=== PATIENT | male | born 1990 | race Caucasian/White ===

== ENCOUNTER 2016-12-30 17:29 | Emergency (ER) | payer SELFPAY ==
[2016-12-30 17:38] VITALS: BP 145/95
[2016-12-30] MEDS ORDERED: Ondansetron INJ* 2 MG/ML VIAL IV ONE (18:09)
--- NOTE | 2016-12-30 18:40 | UC ---
UC General HPI - HPI Summary HPI Summary: The patient comes in today for: 1. Tingling and shaking: Onset: 2-3 hours ago. Palliative/provocative: Nothing. Quality: Tingling. Region: He stated that he had tingling of the face, chest, arms and hands. With his hydration and Zofran, he states that there is only fainting tingling of the hands at this time, but it is improving. Severity: 0/10 pain. Time: Constant, but improving. Associated symptoms: Event: He started drinking at 7 PM last night and drank until 3 AM. He thinks that he had about 15 shots of [place]. Urination: It has been a long time since he started his partying. Vomiting: Started at 3-4 AM. He thinks that he vomited 100 to 150 (gagging) . Nausea is completely gone now. Diarrhea: None. He last urinated this AM and it was a dark yellow. * - History of Current Complaint Chief Complaint: UCGeneralIllness Stated Complaint: HANDS NUMB Time Seen by Provider: 12/30/16 17:57 Hx Obtained From: Patient - Allergy/Home Medications Allergies/Adverse Reactions: Allergies Allergy/AdvReac Type Severity Reaction Status Date / Time No Known Allergies Allergy Verified 12/30/16 17:38 Home Medications: Home Medications NK [No Home Medications Reported] 12/30/16 [History Confirmed 12/30/16] PMH/Surg Hx/FS Hx/Imm Hx Previously Healthy: Yes - No HTN, usually good BP Endocrine History Of: Denies: Diabetes, Thyroid Disease, Hyperthyroidism, Hypothyroidism, Dyslipidemia Cardiovascular History Of: Denies: Cardiac Disorders, Hypertension, Pacemaker/ICD, Myocardial Infarction , Congestive Heart Failure, Atrial Fibrillation, Deep Vein Thrombosis, Bleeding Disorders Respiratory History Of: Denies: COPD, Asthma, Bronchitis, Pneumonia, Pulmonary Embolism GI/ History Of: Denies: Gastroesophageal Reflux, Ulcer, Gastrointestinal Bleed, Gall Bladder Disease, Kidney Stones, Diverticulitis, Renal Disease, Urosepsis Neurological History Of: Denies: TIA, CVA, Dementia, Seizures, Migraine Psychological History Of: Denies: Anxiety, Depression, Bipolar Disorder, Schizophrenia, Post Traumatic Stress Disorder Cancer History Of: Denies: Lung Cancer, Colorectal Cancer, Breast Cancer, Prostate Cancer, Cervical Cancer Other History Of: Negative For: HIV, Hepatitis B, Hepatitis C, Anticoagulant Therapy - Surgical History Surgical History: None - Family History Known Family History: Negative: Cardiac Disease, Hypertension - Social History Occupation: Unemployed Alcohol Use: Occasionally Substance Use Type: None Smoking Status (MU): Former Smoker Length of Time of Smoking/Using Tobacco: 2 weeks Household Exposure Type: Cigarettes Review of Systems Constitutional: Negative Skin: Negative Eyes: Negative ENT: Negative Respiratory: Negative Cardiovascular: Negative Gastrointestinal: Negative Genitourinary: Negative All Other Systems Reviewed And Are Negative: Yes Physical Exam Triage Information Reviewed: Yes Appearance: Well-Appearing, No Pain Distress Vital Signs: Initial Vital Signs Temp 98.6 F 12/30/16 17:35 Pulse 84 12/30/16 17:35 Resp 20 12/30/16 17:35 BP 145/95 12/30/16 17:35 Pulse Ox 100 12/30/16 17:35 Vital Signs Reviewed: Yes Eyes: Positive: Conjunctiva Clear. Negative: Discharge ENT: Positive: Hearing grossly normal. Negative: Pharyngeal erythema, Nasal congestion, Nasal drainage, TM bulging, TM dull, TM red, Tonsillar swelling, Tonsillar exudate Dental: Negative: Gross Decay/Caries @, Dental Fracture @ Neck: Positive: Supple, Nontender, No Lymphadenopathy. Negative: Nuchal Rigidity Respiratory: Positive: Chest non-tender, Lungs clear, No respiratory distress, No accessory muscle use. Negative: Rhonchi, Wheezing Cardiovascular: Positive: RRR, No Murmur Abdomen Description: Positive: Nontender, No Organomegaly, Soft. Negative: Distended, Guarding Musculoskeletal: Positive: Strength Intact, ROM Intact, No Edema Neurological: Positive: Alert, Other: - He had only slight numbness to pin prick of the ends of his fingers. But, he states that it has been improving. Psychological: Positive: Age Appropriate Behavior, Consolable Skin: Negative: rashes, breakdown Course/Dx - Course Course Of Treatment: patient got 1000 ml of D5NS and 4 mg Zofran IV. He states that he is very much better. - Differential Dx - Multi-Symptom Provider Diagnoses: Acute alcohol intoxication and recovery. Discharge - Discharge Plan Condition: Stable Disposition: HOME Patient Education Materials: Alcohol Intoxication (ED) Additional Instructions: Please see your primary care provider next week to makes sure that you are doing well and your numbness is gone. If you have any problems between now and then, you can come to see us. Please refrain from alcohol until you are completely recovered. And then, if you start using alcohol again, no more than 2 drinks away.
[2016-12-30] MEDS ORDERED: D5NS 0.9% 1000 ML BAG* 1,000 ML IV SCH (19:00)
== END 2016-12-30 19:06 | disposition home or self-care (01) ==
LOC: UCEAST 17:29
DX: F10.129 Alcohol abuse with intoxication, unspecified (principal); R20.2 Paresthesia of skin; Z87.891 Personal history of nicotine dependence
CPT/HCPCS: 81003; 96360; 96374; 99212; G0463; J2405